=== PATIENT | male | born 1970 | race Caucasian/White ===

== ENCOUNTER → 2022-11-21 13:04 | Outpatient (CLI) | payer MEDICARE, MEDICAID, SELFPAY ==
--- NOTE | 2022-11-21 13:11 | XR_ITS ---
FINAL REPORT CLINICAL HISTORY: RT SHOULDR PAIN FINDINGS: RIGHT SHOULDER 3 views of the right shoulder were obtained. There is no acute fracture or dislocation. The joint spaces are intact. There is a large right paramediastinal mass. IMPRESSION: No acute bony abnormality. Reviewed, Interpreted and Dictated by Alonzo Montes MD Transcribed by Merary Coleman Authenticated and . [facility]
--- NOTE | 2022-11-21 13:11 | XR_ITS ---
FINAL REPORT TECHNIQUE: Chest PA & Lateral CLINICAL HISTORY: LOW BACK PAIN,RT SHOULDER PAIN FINDINGS: 2 views of the chest were performed. The heart size is normal. The mediastinum is within normal limits. There is a large well-circumscribed mass in the right paramediastinal region measuring approximately 9.7 x 5.5 cm in craniocaudal and transverse dimensions. This mass appears to lie posterior as seen axial lateral view. It is difficult to determine if it is intra or extra pulmonary. The lungs are hyperinflated. The left lung is clear. There are no pleural effusions. There is no pneumothorax. The bony thorax appears intact. IMPRESSION: Large right paramediastinal mass, highly concerning for underlying neoplasia. Recommend infused thoracic CT for further evaluation. Reviewed, Interpreted and Dictated by Alonzo Montes MD Transcribed by Merary Coleman Authenticated and [facility]
--- NOTE | 2022-11-21 13:11 | XR_ITS ---
FINAL REPORT CLINICAL HISTORY: LOW BACK PAIN FINDINGS: LUMBAR SPINE Five views were obtained. There is no acute fracture. There is no malalignment. There is 15 degrees of lumbar scoliosis convex to the left. The disc spaces are preserved. There is no soft tissue abnormality. IMPRESSION: No acute bony abnormality. Reviewed, Interpreted and Dictated by Alonzo Montes MD Transcribed by Merary Coleman Authenticated and [facility]
== END ==
PROVIDERS: PCP Family Medicine; Visit Provider Family Medicine
DX: M25.511 Pain in right shoulder (principal); R07.89 Other chest pain; M54.50 Low back pain, unspecified
CPT/HCPCS: 71046; 72110; 73030

== ENCOUNTER → 2022-12-10 12:41 | Outpatient (CLI) | payer MEDICARE, MEDICAID, SELFPAY ==
--- NOTE | 2022-12-10 12:53 | CT_ITS ---
FINAL REPORT TECHNIQUE: Axial images through the chest was performed with and without contrast. Sagittal and coronal reformatted images were obtained and reviewed. This study was performed with techniques to keep radiation doses as low as reasonably achievable (ALARA). Individualized dose reduction techniques using automated exposure control or adjustment of mA and/or kV according to the patient's size were employed. CLINICAL HISTORY: MASS IN CHEST smoker FINDINGS: There is no axillary lymphadenopathy. No mediastinal or hilar lymphadenopathy is identified. There are changes of severe emphysema. There is a large medial right upper lobe mass measuring 8 cm in axial dimension and 9.2 cm in craniocaudal dimension. There is irregularity of the posterior right rib along the posterior margin of the mass. There is extension of abnormal soft tissue into the right T3-4 and T4-5 neural foramen. The lungs are otherwise clear. Limited images of the upper abdomen demonstrate very large bilateral adrenal masses measuring 11 cm on the right and 7.5 cm on the left consistent with metastases. There are soft tissue nodules just inferior to the left hemidiaphragm consistent with metastases. The largest nodule is inseparable from the spleen measuring 3.6 cm. Other than the involvement of the posterior L4 rib, no acute osseous abnormality is identified. IMPRESSION: Large medial right upper lobe mass which extends into the upper thoracic neural foramen, favor primary bronchogenic carcinoma, less likely lymphoma. Consider MRI regarding spine involvement Large bilateral adrenal masses and upper abdomen soft tissue nodules most consistent with metastases. Reviewed, Interpreted and Dictated by Dolly Boudreaux MD Transcribed by Kae Love Authenticated and [facility]
== END ==
PROVIDERS: PCP Family Medicine; Visit Provider Family Medicine
DX: R22.2 Localized swelling, mass and lump, trunk (principal)
CPT/HCPCS: 71270; Q9967

== ENCOUNTER 2023-01-15 14:55 | Inpatient (IN) | payer OTHER, MEDICARE, MEDICAID, SELFPAY ==
[2023-01-15] VITALS (7 sets, daily range): BP systolic 87–127; BP diastolic 52–69; PULSE 71–90; RESP 15–18; TEMP 36.5–36.6; O2SAT 94–99; BMI 13.3
--- NOTE | 2023-01-15 15:12 | HMH.EDGENADL ---
Discharge Plan Disposition Chief Complaint: Weakness Prescriptions Prescriptions: No Action furosemide 40 mg tablet 40 mg PO DAILY Label Comments: TAKE 1 TABLET BY MOUTH EVERY DAY acetaminophen-codeine 300-30 mg tablet 1 tab PO Q6 PRN (Reason: Pain) Label Comments: TAKE 1 TABELT BY MOUTH EVERY 6 HOURS NEEDED FOR PAIN tramadol 50 mg tablet 50 mg PO Q4-6H PRN (Reason: Pain) Label Comments: TAKE 1 TO 2 TABLETS BY MOUTH EVERY 4 HOURS NEEDED FOR PAIN montelukast 10 mg tablet 10 mg PO DAILY fluticasone propionate 50 mcg/actuation spray,suspension 50 mcg INTRANASAL DAILY Referrals Follow up/Referrals: Ty Moya MD [Staff Physician] - See instructions Clinical Impressions Clinical Impression: Bronchogenic carcinoma, Metastatic cancer, Cachectic, Weakness, Encounter for end of life care Discharge ED Provider: Lauro Engel General Adult HPI General Chief complaint: Weakness Stated complaint: Weakness Time Seen by Provider: 01/15/23 15:12 Mode of Arrival: EMS Source of Information: Patient and EMS Limitations: Physical Limitations Description of Symptoms (Recalled from ER Triage Doc. by RN): 52 M presents from home via EMS after family called out. EMS reports patient's mother was there and said her son is ate up with cancer and can't do nothing for himself anymore. She adds that he keeps urinating on himself. Patient is a/o x3, GCS 15 on arrival. He is very frail and thin. He reports he just wants to be at home and in peace. 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 He used to be a [place] of the state but recently his mother's become guardian of him and she called 911 if she cannot care for him any further. History is obtained from patient EMS and from mother. Patient has no clinical deterioration to the point where his history is limited and he is a good historian. He states that he does not want to be here in the hospital and he wants to be at home and he wants to comfortably at home. He denies needing any pain medicine or nausea medicine. He states that the weakness just got so profound that he cannot care for himself at home and got to the point where he had to urinate on himself and was unable to get up. His mother states that she is not strong enough or able to care for him. He does not desire any IV fluids any blood work any aggressive management and he has no suicidal thoughts he just wants to comfortably and peacefully. Related Data Home Medications Medication Instructions Recorded Confirmed acetaminophen 300 mg-codeine 30 mg 1 tab PO Q6 PRN Pain 01/15/23 01/15/23 tablet fluticasone propionate 50 50 mcg intranasal DAILY Allergic 01/15/23 01/15/23 mcg/actuation nasal rhinitis spray,suspension furosemide 40 mg tablet 40 mg PO DAILY Edema 01/15/23 01/15/23 montelukast 10 mg tablet 10 mg PO DAILY Allergic rhinitis 01/15/23 01/15/23 tramadol 50 mg tablet 50 mg PO Q4-6H PRN Pain 01/15/23 01/15/23 Allergies Allergy/AdvReac Type Severity Reaction Status Date / Time amoxicillin [AMOXICILLIN] Allergy Intermediate Rash Verified 01/15/23 15:15 codeine [CODEINE] AdvReac Intermediate Nausea Verified 01/15/23 15:15 PFSH [facility] Disclaimer: The information contained in this section may have been updated after the patient was seen, as this information can be updated by other users. Social History Smoking Status: Current some day smoker tobacco type: cigarettes packs per day: 3 alcohol intake: current substance use type: denies use current occupational status: disabled Travel in the last 8 weeks: None number of children: 0 ROS Obtained: Yes All systems reviewed & no additional complaints except as document
--- NOTE | 2023-01-15 15:14 | PC.NURSE ---
Workup is on hold per attending. Patient resting, NAD at this time. No needs
--- NOTE | 2023-01-15 15:22 | PC.NURSE ---
ER MD and pts Mother, John are at BS with patient. Karen Mederos LPN with case managment is at BS also
--- NOTE | 2023-01-15 15:29 | PC.NURSE ---
data systems manager at bedside speaking to patient. Hospice is on their way to evaluate patient now
--- NOTE | 2023-01-15 15:38 | CARE MANAGER ---
Spoke with patient and mother, patient wishes to return home with end of life care. Mom states that patient cannot return home as he cannto take care of himself they wish to speak to Hospice. I reached out to Purnima Coleman (Hospice) and a Hospice office services representative will be up to see this patient in the ER this afternoon. This information was forwarded to family.
--- NOTE | 2023-01-15 17:12 | PC.NURSE ---
Hospice nurse at bedside
--- NOTE | 2023-01-15 17:32 | PC.NURSE ---
COVID SWAB SENT UP TO LAB
--- NOTE | 2023-01-15 17:32 | PC.NURSE ---
HOUSE AWARE OF ADMISSION
[2023-01-15 17:36] LABS: Coronavirus 19, PCR Not Detected (NotDetected); Influenza A, PCR Not Detected (NotDetected); Influenza B, PCR Not Detected (NotDetected)
--- NOTE | 2023-01-15 17:38 | EXP.HP ---
History of Present Illness *Admission Date: 01/15/23 *Reason for visit:: metastatic cancer *History of present illness: 52 year old male with a past medical history of paranoid schizophrenia and a large right sided lung mass who presents with his parents because of generalized weakness. The patient developed chest pain around one year ago. He had a ct scan of the chest and was found to have a large medial right upper lobe mass which extends into the upper thoracic neural foramen favoring primary bronchogenic carcinoma along with large bilateral adrenal masses and soft tissue nodules in the abdomen consistent with metastases. He refused further workup or treatment and has been living with his parents. His generalized weakness progressed to the point that he has been unable to get out of bed for the past two days. He's had severe weight loss and chronic diarrhea. His parents brought him to the ED because they are no longer able to adequately care for him. [facility] Disclaimer: The information contained in this section may have been updated after the patient was seen, as this information can be updated by other users. Social History (Updated 01/15/23 @ 17:29 by Lauro Engel MD) Smoking Status: Current some day smoker tobacco type: cigarettes packs per day: 3 alcohol intake: current substance use type: denies use current occupational status: disabled Travel in the last 8 weeks: None number of children: 0 Review of Systems Review of Systems Review of systems (narrative): All systems were reviewed and are negative except what is mentioned in the HPI. Meds Home Medications and Allergies Home Medications Medication Instructions Recorded Confirmed Type acetaminophen 300 mg-codeine 30 mg 1 tab PO Q6 PRN Pain 01/15/23 01/15/23 History tablet fluticasone propionate 50 50 mcg intranasal DAILY Allergic 01/15/23 01/15/23 History mcg/actuation nasal rhinitis spray,suspension furosemide 40 mg tablet 40 mg PO DAILY Edema 01/15/23 01/15/23 History montelukast 10 mg tablet 10 mg PO DAILY Allergic rhinitis 01/15/23 01/15/23 History tramadol 50 mg tablet 50 mg PO Q4-6H PRN Pain 01/15/23 01/15/23 History New Prescriptions to Start Prescriptions: Allergies Allergy/AdvReac Type Severity Reaction Status Date / Time amoxicillin [AMOXICILLIN] Allergy Intermediate Rash Verified 01/15/23 15:15 codeine [CODEINE] AdvReac Intermediate Nausea Verified 01/15/23 15:15 Exam Data for Last 24 hours Vital signs and Labs for Last 24 Hours: Temp Pulse Resp BP Pulse Ox 97.7 F 74 15 93/54 L 97 01/15/23 14:55 01/15/23 16:00 01/15/23 14:55 01/15/23 16:00 01/15/23 16:00 I & O for Last 24 hours: Intake & Output 01/12/23 01/13/23 01/14/23 01/15/23 23:59 23:59 23:59 23:59 Weight 38.555 kg Constitutional Constitutional: no acute distress and cachectic *Routine HEENT Exam Head: Present normocephalic Eye: Present EOMI and PERRL ENT: Present mucous membranes moist *Routine Neck Exam Neck: Present supple; Absent lymphadenopathy *Routine Respiratory Exam Respiratory: Present CTA bilaterally *Routine Cardiovascular Exam Cardiovascular: Present RRR *Routine Abdominal Exam Abdominal: Present soft and normoactive bowel sounds; Absent tenderness *Routine Rectal Exam Rectal:: deferred *Routine Genitalia Exam Genitalia:: deferred *Routine Extremities Exam Extremities: Absent cyanosis, clubbing or edema *Routine Skin Exam Skin: Present warm; Absent rash *Routine Neurological Exam Neurological: Present alert and oriented X3 Assessment and Plan *Assessment and plan (1) Bronchogenic carcinoma: Status: Acute Category: Medical Code(s): C34.90 - Malignant neoplasm of unspecified part of unspecified bronchus or lung (2) Metastatic cancer: Status: Acute Category: Medical Code(s): C79.9 - Secondary malignant neoplasm of unspecified site (3) Cachectic: Stat
--- NOTE | 2023-01-15 18:02 | PC.NURSE ---
Pt arrived to the floor at this time.
--- NOTE | 2023-01-15 19:51 | PC.NURSE ---
A&OX4. TOLERATING RA WELL. PT HAS HAD NO COMPLAINTS SINCE ARRIVAL TO FLOOR. PT WAS GIVEN BATH SOON ARRIVED TO FLOOR, WAS COVERED IN STOOL. PT HAS STAGE 1 SORE TO COCCYX. BUTTERFLY DRESSING PLACED. PT HAS REFUSED TO HAVE PICTURES TAKEN OF WOUND. PT ALSO HAS MULTIPLE SMALL TUMORS ON CHEST AND LEGS, WITH A LARGE ONE TO R THIGH. PAINFUL TO TOUCH. PARENTS AT BEDSIDE ALONG WITH HOSPICE NURSE AT TIME OF ADMISSION. PT HAS NO OTHER NEEDS NOTED THUS FAR, VSS.
[2023-01-16 04:00] VITALS: BP 90/47; PULSE 92; RESP 18; TEMP 36.8; O2SAT 88; BMI 16.9
--- NOTE | 2023-01-16 05:15 | PC.NURSE ---
DRY COUGH NOTED.NO C/O PAIN OR DISCOMFORT. INCONTINENT B&B. DRSG TO COCCYX AREA C/D/I. HAS A PRESSURE AREA THERE, STAGE 1 BY REPORT.
--- NOTE | 2023-01-16 07:32 | HMH.PHAINT1 ---
Pharmacy Intervention Comments: HOME MEDICATION LIST VERIFIED USING LIST FROM OUTPATIENT PHARMACY
[2023-01-16 08:00] VITALS: BP 94/56; PULSE 90; RESP 20; TEMP 36.5; O2SAT 94
--- NOTE | 2023-01-16 08:32 | CARE MANAGER ---
Addendum entered by Meg England RN 01/16/23 14:18: Patient has been accepted @ [place]. Discharge is planned for Sat. 01/17, and they request the patient be there between [address] Art notified of this, as well as need for all medications needing to be hard scripts due to weekend admit to senior care. Original Note: Spoke with Purnima at [facility]. She states patient was to be admitted Hospice inpatient yesterday. They hope to have a bed for him at [facility] today and she will let us know. ROSE Cr
--- NOTE | 2023-01-16 10:48 | P.PN_ITS ---
Subjective *Date: 01/16/23 *Time: 10:59 Interval history: No diarrhea since yesterday Exam Data for Last 24 hours Vital signs and Labs for Last 24 Hours: Temp Pulse Resp BP Pulse Ox 97.7 F 90 20 94/56 L 94 L 01/16/23 08:00 01/16/23 08:00 01/16/23 08:00 01/16/23 08:00 01/16/23 08:00 Laboratory Results - last 24 hr 01/15/23 17:30: SARS-CoV-2 (PCR) Not detected, Influenza A Untype (PCR) Not detected, Influenza Type B (PCR) Not detected I & O for Last 24 hours: Intake & Output 01/13/23 01/14/23 01/15/23 01/16/23 23:59 23:59 23:59 23:59 Intake Total 300 / 300 Output Total 101 / 101 Balance 199 / 199 Weight 38.555 kg 48.988 kg Constitutional Constitutional: no acute distress *Routine HEENT Exam Head: Present normocephalic Eye: Present EOMI and PERRL ENT: Present mucous membranes moist *Routine Neck Exam Neck: Present supple; Absent lymphadenopathy *Routine Respiratory Exam Respiratory: Present CTA bilaterally *Routine Cardiovascular Exam Cardiovascular: Present RRR *Routine Abdominal Exam Abdominal: Present soft and normoactive bowel sounds; Absent tenderness *Routine Extremities Exam Extremities: Absent cyanosis, clubbing or edema *Routine Skin Exam Skin: Present warm; Absent rash *Routine Neurological Exam Neurological: Present alert and oriented X3 Assessment and Plan *Assessment and plan (1) Bronchogenic carcinoma: Status: Acute Category: Medical Code(s): C34.90 - Malignant neoplasm of unspecified part of unspecified bronchus or lung (2) Metastatic cancer: Status: Acute Category: Medical Code(s): C79.9 - Secondary malignant neoplasm of unspecified site (3) Cachectic: Status: Acute Category: Medical Code(s): R64 - Cachexia (4) Weakness: Status: Acute Category: Medical Code(s): R53.1 - Weakness (5) Chronic diarrhea: Status: Acute Category: Medical Code(s): K52.9 - Noninfective gastroenteritis and colitis, unspecified (6) Severe protein-calorie malnutrition: Status: Acute Category: Medical Code(s): E43 - Unspecified severe protein-calorie malnutrition Plan #metastatic cancer #paranoid schizophrenia #chronic diarrhea #severe protein calorie malnutrition Continue comfort care measures only. Continue Imodium 2mg QID [place] declined him. Consult hospice services.
[2023-01-16 11:02] VITALS: BMI 16.9
--- NOTE | 2023-01-16 18:08 | PC.NURSE ---
Patient states he wants to go home. Pain reported and medications given, pain not relieved so new order obtained. Patient states his pain was helped but still wants to go home. VS stable, patient on room air. Lung sounds diminished.
--- NOTE | 2023-01-16 19:53 | PC.NURSE ---
PATIENT ANGRY. WANTS TO GO HOME. FAMILY SAYS NO ONE AVAILABLE TO CARE FOR HIM. PATIENT SAYS HE CANT EAT. MOUTH SORE. TONGUE HAS WHAT LOOKS LIKE THRUSH. DR MTZ NOTIFIED.
[2023-01-16 19:57] VITALS: O2SAT 94
[2023-01-16 20:00] VITALS: PULSE 90; RESP 18; TEMP 36.9; O2SAT 93
--- NOTE | 2023-01-16 20:15 | PC.NURSE ---
Patient refused to get a BP. Nurse Yesica Mackey was notified
[2023-01-17 04:00] VITALS: BMI 17.2
--- NOTE | 2023-01-17 04:07 | PC.NURSE ---
patient angry. SAYS HE WANTS TO GO HOME. FAMILY MEMBERS SAY THAT PATIENT IS UNABLE TO CARE FOR HIMSELF AND THERE IS NOONE TO HELP HIM. NO COMPLAINTS OF PAIN.
[2023-01-17 07:20] VITALS: BP 103/60; PULSE 90; RESP 16; TEMP 36.7; O2SAT 93
--- NOTE | 2023-01-17 07:53 | EXP.DC.SUM ---
General Admission date:: 01/15/23 Discharge date: 01/17/23 HPI HPI HPI: 52 year old male with a past medical history of paranoid schizophrenia and a large right sided lung mass who presents with his parents because of generalized weakness. The patient developed chest pain around one year ago. He had a ct scan of the chest and was found to have a large medial right upper lobe mass which extends into the upper thoracic neural foramen favoring primary bronchogenic carcinoma along with large bilateral adrenal masses and soft tissue nodules in the abdomen consistent with metastases. He refused further workup or treatment and has been living with his parents. His generalized weakness progressed to the point that he has been unable to get out of bed for the past two days. He's had severe weight loss and chronic diarrhea. His parents brought him to the ED because they are no longer able to adequately care for him. Hospital Course Hospital Course Hospital Course: The patient and his parents decided to pursue end of life care. He will be discharging to [place] with comfort care only. On exam he was noted to have oropharyngeal thrush and complained of odynophagia. He started on Nystatin. He was started on loperamide for his chronic diarrhea. Exam Data for Last 24 hours Vital signs and Labs for Last 24 Hours: Temp Pulse Resp BP Pulse Ox 98.1 F 90 16 103/60 L 93 L 01/17/23 07:20 01/17/23 07:20 01/17/23 07:20 01/17/23 07:20 01/17/23 07:20 I & O for Last 24 hours: Intake & Output 01/14/23 01/15/23 01/16/23 01/17/23 23:59 23:59 23:59 23:59 Intake Total 1120 / 1120 240 / 240 Output Total 651 / 651 550 / 550 Balance 469 / 469 -310 / -310 Weight 38.555 kg 48.98 kg 49.804 kg Constitutional Constitutional: no acute distress *Routine HEENT Exam Head: Present normocephalic Eye: Present EOMI and PERRL ENT: Present mucous membranes moist and other (thrush) *Routine Neck Exam Neck: Present supple; Absent lymphadenopathy *Routine Respiratory Exam Respiratory: Present CTA bilaterally *Routine Cardiovascular Exam Cardiovascular: Present RRR *Routine Abdominal Exam Abdominal: Present soft and normoactive bowel sounds; Absent tenderness *Routine Extremities Exam Extremities: Absent cyanosis, clubbing or edema *Routine Skin Exam Skin: Present warm; Absent rash *Routine Neurological Exam Neurological: Present alert and oriented X3 DS: Diagnosis Discharge Diagnosis (1) Bronchogenic carcinoma: Status: Acute (2) Metastatic cancer: Status: Acute (3) Cachectic: Status: Acute (4) Weakness: Status: Acute (5) Chronic diarrhea: Status: Acute (6) Severe protein-calorie malnutrition: Status: Acute Meds Home Medications and Allergies Home Medications Medication Instructions Recorded Confirmed Type loperamide 2 mg capsule 2 mg PO QID #28 caps 01/17/23 Rx nystatin 100,000 unit/mL oral 500,000 unit (5 mL) PO QID 10 days 01/17/23 Rx suspension #200 mL New Prescriptions to Start Prescriptions: Casper Gordon John Allergies Allergy/AdvReac Type Severity Reaction Status Date / Time amoxicillin [AMOXICILLIN] Allergy Intermediate Rash Verified 01/15/23 15:15 codeine [CODEINE] AdvReac Intermediate Nausea Verified 01/15/23 15:15 Discharge Plan Disposition Patient Disposition: [facility] Condition: Fair Discharge Order Discharge Orders: Discharge Order (Routine); Ordered 01/17/23 Ordered By: Casper Art Follow up Plan Follow up with: Aniket Alvarez MD [Primary Care Provider] - 2 weeks Prescriptions/Medication Reconciliation: New nystatin 100,000 unit/mL Suspension 500,000 unit PO QID 10 Days Qty: 200 0RF loperamide 2 mg Capsule 2 mg PO QID Qty: 28 0RF Discontinued furosemide 40 mg tablet 40 mg PO DAILY Label Comments: TAKE 1 TABLET BY MOUTH EVERY D
--- NOTE | 2023-01-17 08:35 | PC.NURSE ---
courtesy tech note; rounded on pt, assisted pt with urinal, pt voided 150 ml at this time, brought pt a mt dew at patients request. No further requests at this time, call light within reach. Comfort Sy, SRNA
== END 2023-01-17 09:06 | disposition hospice, inpatient (51) | DRG 180 ==
LOC: ER 15:25 → 2ND 17:53
PROVIDERS: Admitting Provider Internal Medicine; Emergency Provider Student in an Organized Health Care Education/Training Program; PCP Family Medicine; Visit Provider Internal Medicine
DX: C34.91 Malignant neoplasm of unspecified part of right bronchus or lung (principal); E43 Unspecified severe protein-calorie malnutrition; R64 Cachexia; Z68.1 Body mass index [BMI] 19.9 or less, adult; F20.0 Paranoid schizophrenia; C74.92 Malignant neoplasm of unspecified part of left adrenal gland; C74.91 Malignant neoplasm of unspecified part of right adrenal gland; Z51.5 Encounter for palliative care; F17.210 Nicotine dependence, cigarettes, uncomplicated; K52.9 Noninfective gastroenteritis and colitis, unspecified
CPT/HCPCS: 99285; C9803; U0003; U0005